=== PATIENT | female | born 2000 | race Caucasian/White ===

== ENCOUNTER 2019-08-01 17:48 | Emergency (ER) | payer OTHER ==
--- NOTE | 2019-08-01 18:40 | EDM.PDOC ---
ED HPI GENERAL MEDICAL PROBLEM - General Chief Complaint: Bite:Animal, Insect Stated Complaint: CAT BITE Time Seen by Provider: 08/01/19 18:00 Source of Information: Reports: Patient History Limitations: Reports: No Limitations - History of Present Illness INITIAL COMMENTS - FREE TEXT/NARRATIVE: Pt bitten by a kitten tonight Animal is unknown to patient and did run off and hasnt been located Pt tetanus UTD Onset: Today Location: Reports: Upper Extremity, Right Context: Reports: Trauma - Related Data Allergies Allergy/AdvReac Type Severity Reaction Status Date / Time No Known Allergies Allergy Verified 08/01/19 18:14 Home Meds: Home Meds FLUoxetine HCl [Prozac] 10 mg DAILY 08/01/19 [History] ED ROS GENERAL - Review of Systems Review Of Systems: See Below ED EXAM, ANIMAL BITE - Physical Exam Exam: See Below Exam Limited By: No Limitations Skin Exam: Other (Right index finger/hand with several superficial scratches No puncture wounds) Course - Re-Assessments/Exams Free Text/Narrative Re-Assessment/Exam: 08/01/19 18:38 Pt does not desire rabies immunizations at this time Departure - Departure Time of Disposition: 18:45 Disposition: Home, Self-Care 01 Clinical Impression: Cat bite of finger Qualifiers: Encounter type: initial encounter Qualified Code(s): S61.259A - Open bite of unspecified finger without damage to nail, initial encounter; W55.01XA - Bitten by cat, initial encounter - Discharge Information Instructions: Animal Bite, Adult, [id number] Referrals: PCP,Not In Area [Primary Care Provider] - Additional Instructions: Keep wound clean Follow up in clinic Return for signs of infection or if desires rabies shots
== END 2019-08-01 18:55 | disposition home or self-care (01) ==
LOC: VM.ED 17:48
DX: S61.250A Open bite of right index finger without damage to nail, initial encounter (principal); W55.01XA Bitten by cat, initial encounter
CPT/HCPCS: 99283